=== PATIENT | female | born 1930 | race African-American/Black ===

== ENCOUNTER 2016-10-16 13:22 | Inpatient (IN) | payer OTHER ==
[~2016-10-16] VITALS: Ht 172.7 cm; Wt 56.7 kg
--- NOTE | ~2016-10-16 | EKG ---
[address] [place] [place] [address] ELECTROCARDIOGRAM REPORT Name: WINTERDINODARREN Room #: 436-P ADM IN M.R.#: [id number] Admission: 10/16/16 Attend Phys: Ralph Saul DO Discharge: Date of : 34 Report #: [id number] THIS REPORT FOR: //name// [facility] ED Test Date: 2016-10-16 Test Time: 13:33:59 Pat Name: EDU WINTER Department: Room: 436 Gender: F Casting Operator: LAWANDA : 1930 Requested By: Se Taylor Order Number: [id number] MD: Bryon Zayas Measurements Intervals Sterling Rate: 70 P: 22 MA: 163 QRS: 11 QRSD: 95 T: 94 QT: 435 QTc: 470 Interpretive Statements Sinus rhythm Atrial premature complexes Nonspecific ST segment abnormality No previous ECG available for comparison Electronically Signed On 10-18-2016 8:55:07 CDT by Bryon Zayas [email or web address] <ELECTRONICALLY SIGNED> By: Bryon Zayas MD, [facility] 10/18/16 0855 1333 1333 Bryon Zayas MD, FACC /EPI
--- NOTE | ~2016-10-16 | HC ---
[facility] [place] [address] CONSULTATION Name: EDU WINTER Room #: 436-P [facility] IN M.R.#: [id number] Admission: 10/16/16 Attend Phys: Ralph Saul DO Discharge: Date of : 34 Report #: [id number] THIS REPORT FOR: //name// CC: Alex Saul DATE OF ADMISSION: 10/16/2016. DATE OF CONSULTATION: 09/19/2016 REASON FOR CONSULTATION: Acute kidney injury. HISTORY OF PRESENT ILLNESS: This 85-year-old female has generally enjoyed good health except for hypertension. She has developed progressive dementia over the past several years and has lost a substantial amount of body weight. She lives with a daughter. On the day of admission, she suffered two episodes of loss of consciousness without observed seizure activity. She was brought to the Emergency Room and subsequently admitted for further evaluation and treatment. Creatinine was elevated to 1.6 on presentation and renal consultation was requested. The patient is unable to provide any meaningful history. A daughter is present and denies any knowledge of underlying chronic kidney disease, nephrolithiasis or urinary tract infection. PAST MEDICAL HISTORY: Is remarkable for hypertension and dementia as described. MEDICATIONS: On admission include Aricept 5 mg daily, amlodipine 10 mg daily, Namenda 10 mg b.i.d. PERSONAL AND SOCIAL HISTORY: The patient lives with a daughter. She is a reformed smoker having quit many years ago. She does not use alcohol or have any history of substance abuse. FAMILY HISTORY: Negative for renal disease. REVIEW OF SYSTEMS: Is not obtainable. PHYSICAL EXAMINATION: GENERAL: Reveals a well-developed female appearing her stated age, in no acute distress. VITAL SIGNS: Blood pressure 130/66, temperature 97.5, pulse 69, respirations 18. SKIN: Warm and dry. There is fair turgor noted. There is no clubbing, cyanosis, edema or adenopathy. There is evidence of significant body mass wastage with lax skin folds. There is no palpable adenopathy present. HEENT: The head is normocephalic and atraumatic. The sclerae are white. The pharynx is benign. NECK: Supple. [facility] [address] [place] [address] CONSULTATION Name: EDU WINTER Room #: 436-P ADM IN M.R.#: [id number] Admission: 10/16/16 Attend Phys: Ralph Saul DO Discharge: Date of : 34 Report #: [id number] LUNGS: Rehman reveal scattered expiratory wheezes without evidence of consolidation. CARDIAC: Reveals a regular rate and rhythm. ABDOMEN: Soft and nontender without palpable mass or organomegaly. Specifically, no bladder is palpable. NEUROLOGIC: Reveals the patient to be a poor historian and rather confused. She has no focal neurologic findings at this time. LABORATORY STUDIES: Available at the time of consultation include sodium 145, potassium 4.7, chloride 110, CO2 29, BUN 16, creatinine 1.5, glucose 80, white blood cell count 5200, hemoglobin 8.6, hematocrit 26.7, platelet count 108,000. Urinalysis revealed trace protein, trace blood, positive nitrates greater than 30 bacteria per high power field. ASSESSMENT AND PLAN: 1. Acute kidney injury in this patient with a history of hypertension, but no prior renal history. Her creatinine has fallen from 1.6-1.5 with modest hydration. I would continue her present IV fluids. We will obtain a straight cath urine specimen to evaluate for urinary tract infection as I believe her initial catch was contaminated. We will obtain a renal ultrasound as well as serologic studies to include JOE, ANCA and serum free light chains. I have discussed that conservative management is in order from my opinion with the patient's daughter who is in complete agreement. We will follow the patient with serial laboratory studies, I and O and daily weights. Please see orders. <ELECTRONICALLY SIGNED> By: Jak Duarte MD 10/18/16 0759 1117 1240 Jak Duarte MD /nt
--- NOTE | ~2016-10-16 | 2DMMODE ---
[facility] [place] [address] 2 D/M-MODE ECHOCARDIOGRAM Name: WINTEREDU Room #: 302-P ADM IN M.R.#: [id number] Admission: 10/16/16 Attend Phys: Ralph Saul, Discharge: Date of : 34 Date of Service: 10/17/16 1538 Report #: [id number] THIS REPORT FOR: //name// APPROVED REPORT EXAM: Comprehensive 2D, Doppler, and color-flow Echocardiogram Patient Location: Bedside/Room 302 Blood Pressure: 125/69 mmHg HR: 64 bpm Other Information Study Quality: Adequate Indications Syncope Hx: HTN, dementia 2D Dimensions RVDd: 38.37 mm LVEF(%): 60.25 (>50%) IVSd: 12.29 (7-11mm) LVOT Diam: 19.79 (18-24mm) LVDd: 43.30 mm PWd: 12.37 (7-11mm) Ascending Aorta: 30.57 mm LVDs: 29.49 (25-40mm) Aortic Root: 31.00 mm Angelo's LVEF: 60.25 % Volumes Left Atrial Volume (Systole) Single Plane 4CH: 63.06 mL Single Plane 2CH: 48.64 mL LA ESV Index: 41.00 mL/m2 Aortic Valve AoV Peak Barak.: 2.23 m/s AO Peak Gr.: 19.88 mmHg LV Max P.47 mmHg AO V2 VTI: 451.39 mm LV Max: 1.17 m/s Mitral Valve MV PHT: 70.35 ms MV E Max Barak.: 0.68 m/s E/A Ratio: 0.8 MV A Barak.: 0.90 m/s MV Decel. Time: 242.58 ms TDI [facility] [place] [address] [place] [address] 2 D/M-MODE ECHOCARDIOGRAM Name: DINO WINTERDARREN Room #: [address] [place] [address] IN .R.#: [id number] Admission: 10/16/16 Attend Phys: Ralph Saul, Discharge: Date of : 34 Date of Service: 10/17/16 1538 Report #: [id number] E/Lateral E': 12.00 E/Medial E': 12.00 Pulmonary Valve PV Peak Barak.: 0.84 m/s PV Peak Gr.: 2.80 mmHg Tricuspid Valve TR Peak Barak.: 3.34 m/s RAP Estimate: 5.00 mmHg TR Peak Gr.: 44.56 mmHg RVSP: 50.00 mmHg Left Ventricle The left ventricle is normal size. There is normal LV segmental wall motion. Mild concentric left ventricular hypertrophy. Left ventricular systolic function is normal. LVEF is 55-60%. Grade I - abnormal relaxation pattern. Right Ventricle The right ventricle is normal size. The right ventricular systolic function is normal. Atria Left atrium is moderately dilated. Right atrium is mildly dilated. Aortic Valve Aortic valve is modertely calcified. No aortic regurgitation is present. Mild aortic stenosis. Mitral Valve Moderate mitral annular calcification. Mild to moderate mitral regurgitation. Tricuspid Valve The tricuspid valve is normal in structure. There is moderate tricuspid regurgitation. The right atrial pressure is estimated at 5 mmHg. Right ventricular systolic pressure is estimated at 50 mmHg. There is moderate pulmonary hypertension. Pulmonic Valve Pulmonic valve is not well visualized. Great Vessels The aortic root is normal in size. IVC is normal in size and collapses >50% with inspiration. Pericardium There is no pericardial effusion. [facility] [address] [place] [address] 2 D/M-MODE ECHOCARDIOGRAM Name: EDU WINTER Room #: 302-P [facility] IN ..#: [id number] Admission: 10/16/16 Attend Phys: Ralph Saul, Discharge: Date of : 34 Date of Service: 10/17/16 1538 Report #: [id number] <Conclusion> Mild concentric left ventricular hypertrophy. Left ventricular systolic function is normal. LVEF 55-60%. There is normal LV segmental wall motion. Grade I diastolic dysfunction Left atrium is moderately dilated. Aortic valve is modertely calcified. No aortic regurgitation; mild aortic stenosis. Moderate mitral annular calcification. Mild-moderate insufficiency There is moderate tricuspid regurgitation. The right atrial pressure is estimated at 5 mmHg. Right ventricular systolic pressure is estimated at 50 mmHg. There is no pericardial effusion. <ELECTRONICALLY SIGNED> By: Bryon Zayas MD, FAC 10/17/16 1538 1538 1538 Bryon Zayas MD, FAC /INF
[2016-10-16] MEDS ORDERED: ARICEPT 5 MG TAB5 MG PO (13:48)
[2016-10-16] MEDS ORDERED: NAMENDA 10 MG T10 MG PO (13:48)
[2016-10-16] MEDS ORDERED: AMLODIPINE BESY10 MG PO (13:48)
[2016-10-16 14:07] LABS: URINE BILIRUBIN NEGATIVE (Negative); URINE BLOOD TRACE (Negative); URINE COLOR YELLOW; URINE GLUCOSE-RANDOM* NEGATIVE (Negative); URINE KETONES NEGATIVE (Negative); URINE LEUKOCYTES-REFLEX NEGATIVE (Negative); URINE PROTEIN (DIPSTICK) TRACE (Negative); URINE SPECIFIC GRAVITY 1.015 (1.003-1.035); URINE UROBILINOGEN 0.2 E.U./dl (0.2-1.0)
[2016-10-16 14:21] LABS: SQUAMOUS >10 Many /LPF (0-3)
[2016-10-16 14:22] LABS: CASTS None Seen /LPF (None Seen)
[2016-10-16 14:23] LABS: CRYSTALS None Seen /LPF (None Seen); URINE RBC 0-2 Rare /HPF (0-2); URINE WBC-REFLEX 6-15 Few /HPF (0-5)
[2016-10-16 14:52] LABS: HEMATOCRIT 33.8 % (37.0-47.0); HEMOGLOBIN 10.8 gm/dL (12.0-15.0); MCH 25.9 pg (26.0-34.0); MCV 80.9 fL (80.0-100.0); RBC 4.17 mil/uL (4.20-5.00); RDW 14.5 % (10.5-14.5); WBC 5.6 thou/uL (4.0-11.0)
[2016-10-16 15:07] LABS: ANION GAP 7 mmol/L (7-16); BUN 18 mg/dL (7-18); CALCIUM 9.4 mg/dL (8.5-10.1); CHLORIDE 111 mmol/L (98-107); CO2 30 mmol/L (21-32); CREATININE 1.6 mg/dL (0.6-1.3); GLUCOSE 98 mg/dL (70-99); POTASSIUM 4.2 mmol/L (3.5-5.1); SODIUM 148 mmol/L (136-145)
[2016-10-16 15:16] LABS: TROPONIN-I < 0.04 ng/mL (<0.04-0.07)
[2016-10-16] MEDS ORDERED: LUMIGAN2.5 M1 OP (20:17)
[2016-10-16] MEDS ORDERED: SIMBRINZA 1%-0.28 ML OP (20:18)
[2016-10-17 05:34] LABS: ABSOLUTE NEUTROPHILS 2.4 thou/uL (1.4-8.2); BASOPHILS 0.9 % (0.0-2.0); EOSINOPHILS 1.1 % (0.0-3.0); HEMATOCRIT 26.7 % (37.0-47.0); MCH 25.9 pg (26.0-34.0); MONOCYTES 6.5 % (1.0-8.0); PLATELET COUNT 108 thou/uL (150-400); POLYS 45.5 % (36.0-66.0); RDW 14.6 % (10.5-14.5); WBC 5.2 thou/uL (4.0-11.0)
[2016-10-17 05:38] LABS: HEMOGLOBIN 8.6 gm/dL (12.0-15.0)
[2016-10-17 05:39] LABS: MANUAL DIFF NO
[2016-10-17 06:07] LABS: CALCIUM 8.9 mg/dL (8.5-10.1); CREATININE 1.5 mg/dL (0.6-1.3); POTASSIUM 4.7 mmol/L (3.5-5.1)
[2016-10-17 12:07] LABS: ABSOLUTE NEUTROPHILS 1.8 thou/uL (1.4-8.2); BASOPHILS 0.8 % (0.0-2.0); EOSINOPHILS 1.5 % (0.0-3.0); HEMATOCRIT 26.9 % (37.0-47.0); HEMOGLOBIN 8.8 gm/dL (12.0-15.0); LYMPHOCYTES 53.1 % (24.0-44.0); MCH 26.2 pg (26.0-34.0); MCHC 32.6 g/dL (28.0-37.0); MCV 80.3 fL (80.0-100.0); MONOCYTES 7.4 % (1.0-8.0); PLATELET COUNT 132 thou/uL (150-400); POLYS 37.2 % (36.0-66.0); RBC 3.35 mil/uL (4.20-5.00); RDW 14.4 % (10.5-14.5)
[2016-10-17 12:09] LABS: MANUAL DIFF NO
[2016-10-17 12:45] LABS: ALKALINE PHOSPHATASE 66 U/L (46-116); DIRECT BILIRUBIN < 0.1 mg/dL (<0.1-0.3); SGOT 17 U/L (15-37); SGPT 11 U/L (30-65); TOTAL BILIRUBIN 0.2 mg/dL (<0.1-1.0); TOTAL PROTEIN 6.1 g/dL (6.4-8.2)
[2016-10-17 23:41] LABS: URINE BILIRUBIN NEGATIVE (Negative); URINE BLOOD TRACE (Negative); URINE COLOR YELLOW; URINE GLUCOSE-RANDOM* NEGATIVE (Negative); URINE KETONES NEGATIVE (Negative); URINE NITRITE NEGATIVE (Negative); URINE PROTEIN (DIPSTICK) NEGATIVE (Negative); URINE UROBILINOGEN 0.2 E.U./dl (0.2-1.0)
[2016-10-18 05:13] LABS: ABSOLUTE NEUTROPHILS 2.2 thou/uL (1.4-8.2); EOSINOPHILS 1.8 % (0.0-3.0); HEMATOCRIT 25.3 % (37.0-47.0); HEMOGLOBIN 8.2 gm/dL (12.0-15.0); LYMPHOCYTES 43.7 % (24.0-44.0); MCH 25.8 pg (26.0-34.0); MCHC 32.5 g/dL (28.0-37.0); MCV 79.4 fL (80.0-100.0); MONOCYTES 5.8 % (1.0-8.0); PLATELET COUNT 115 thou/uL (150-400); POLYS 47.7 % (36.0-66.0); RBC 3.18 mil/uL (4.20-5.00); RDW 14.1 % (10.5-14.5); WBC 4.6 thou/uL (4.0-11.0)
[2016-10-18 05:23] LABS: MANUAL DIFF NO
[2016-10-18 05:26] LABS: ALBUMIN 2.7 g/dL (3.4-5.0); CALCIUM 8.5 mg/dL (8.5-10.1); CREATININE 1.4 mg/dL (0.6-1.3); MAGNESIUM 1.7 mg/dL (1.8-2.4); PHOSPHORUS 4.2 mg/dL (2.5-4.9); POTASSIUM 4.3 mmol/L (3.5-5.1)
[2016-10-18 13:13] LABS: URINE CREATININE-RANDOM* 19.3 mg/dL (Not Estab.)
[2016-10-18 16:08] LABS: URINE PROTEIN-RANDOM* 8.5 mg/dL (Not Estab.)
[2016-10-19 06:00] LABS: ABSOLUTE NEUTROPHILS 1.5 thou/uL (1.4-8.2); BASOPHILS 0.8 % (0.0-2.0); EOSINOPHILS 2.9 % (0.0-3.0); HEMATOCRIT 25.4 % (37.0-47.0); HEMOGLOBIN 8.2 gm/dL (12.0-15.0); LYMPHOCYTES 54.4 % (24.0-44.0); MCH 25.9 pg (26.0-34.0); MCHC 32.4 g/dL (28.0-37.0); MONOCYTES 6.3 % (1.0-8.0); PLATELET COUNT 123 thou/uL (150-400); POLYS 35.6 % (36.0-66.0); RBC 3.18 mil/uL (4.20-5.00); WBC 4.1 thou/uL (4.0-11.0)
[2016-10-19 06:16] LABS: CALCIUM 8.6 mg/dL (8.5-10.1); CREATININE 1.3 mg/dL (0.6-1.3); POTASSIUM 4.2 mmol/L (3.5-5.1)
[2016-10-19 06:17] LABS: MANUAL DIFF NO
[2016-10-19 06:26] LABS: % SATURATION 26 % (20-39); IRON 46 ug/dL (50-170); TIBC 179 ug/dL (250-450); UIBC 133 ug/dL
[2016-10-19] MEDS ORDERED: KEFLEX250 MG PO (12:32)
[2016-10-19] MEDS ORDERED: MAGOX 400400 MG PO (12:32)
[2016-10-19] MEDS ORDERED: NORVASC5 MG PO (12:34)
[2016-10-19 17:59] LABS: KAPPA FREE LIGHT CHAINS 48.23 mg/L (3.30-19.40); KAPPA/LAMBDA RATIO 2.74 (0.26-1.65); LAMBDA FREE LIGHT CHAINS 17.61 mg/L (5.71-26.30)
[2016-10-23 17:10] LABS: c-ANCA <1:20 titer (Neg:<1:20); p-ANCA <1:20 titer (Neg:<1:20)
== END 2016-10-19 17:00 | DRG 682 ==
LOC: ER 13:22 → EROBS 17:04 → 3N 17:04 → 4S 10-17 17:28
PROVIDERS: Emergency Medicine; Internal Medicine; Internal Medicine Gastroenterology; Internal Medicine Geriatric Medicine; Internal Medicine Nephrology
DX: N17.9 Acute kidney failure, unspecified (principal); E43 Unspecified severe protein-calorie malnutrition; N39.0 Urinary tract infection, site not specified; Z68.1 Body mass index [BMI] 19.9 or less, adult; G30.9 Alzheimer's disease, unspecified; F02.80 Dementia in other diseases classified elsewhere, unspecified severity, without behavioral disturbance, psychotic disturbance, mood disturbance, and anxiety; I10 Essential (primary) hypertension; E83.42 Hypomagnesemia; D63.8 Anemia in other chronic diseases classified elsewhere; Z23 Encounter for immunization; Z87.891 Personal history of nicotine dependence
CPT/HCPCS: 10096; 10100

== ENCOUNTER 2016-11-13 12:33 | Emergency (ER) | payer OTHER ==
[~2016-11-13] VITALS: Ht 172.7 cm; Wt 56.7 kg
[~2016-11-13 12:33] MED LIST: AMLODIPINE BESY10 MG PO; ARICEPT 5 MG TAB5 MG PO; KEFLEX250 MG PO; LUMIGAN2.5 M1 OP; MAGOX 400400 MG PO; NAMENDA 10 MG T10 MG PO; NORVASC5 MG PO; SIMBRINZA 1%-0.28 ML OP
[2016-11-13] MEDS ORDERED: VITAMIN B122500 MCG PO (15:33)
== END 2016-11-13 15:39 | disposition home or self-care (01) ==
LOC: ER 12:33
DX: S90.821A Blister (nonthermal), right foot, initial encounter (principal); I10 Essential (primary) hypertension; G30.9 Alzheimer's disease, unspecified; F02.80 Dementia in other diseases classified elsewhere, unspecified severity, without behavioral disturbance, psychotic disturbance, mood disturbance, and anxiety; X58.XXXA Exposure to other specified factors, initial encounter; Y93.89 Activity, other specified; Y92.89 Other specified places as the place of occurrence of the external cause; Y99.8 Other external cause status

== ENCOUNTER 2016-11-22 09:54 | Inpatient (IN) | payer OTHER ==
[~2016-11-22] VITALS: Ht 172.7 cm; Wt 63.5 kg
--- NOTE | ~2016-11-22 | H ---
[facility] [place] [address] HISTORY AND PHYSICAL Name: EDU WINTER Room #: 444-P ADM IN M.R.#: [id number] Admission: 11/22/16 Attend Phys: Alex Ricardo MD Discharge: Date of : 32 Report #: [id number] THIS REPORT FOR: //name// CC: Alex Ricardo DATE OF SERVICE: 11/22/2016 CHIEF COMPLAINT: Weakness. HISTORY OF PRESENT ILLNESS: The patient is an 86-year-old female who was admitted from home with weakness of a few days' onset, but abnormal lab work. She was hospitalized about 6 weeks ago with syncopal episode, urinary tract infection and mild renal insufficiency. It appears creatinine bumped up maybe to 1.8-2, but seemed to stabilize and improve with IV fluids down to about 1.5-1.6. She then transferred to [facility] [place] [facility] for rehabilitation efforts where she stayed about 4-5 weeks according to her daughter. She reports that at the facility, she was able to walk and had a fairly good appetite. She just went home about 5 or 7 days ago and daughter reports that she has been eating and drinking less, spending more time sleeping and is very weak and unable to stand. I assessed her in the office yesterday and lab work was obtained this morning. It revealed a creatinine of 4.4 with a BUN of 77 and a sodium of 153. PAST MEDICAL HISTORY: Hypertension, Alzheimer disease. PAST SURGICAL HISTORY: Noncontributory. FAMILY HISTORY: Unknown. SOCIAL HISTORY: She lives with her daughter and is cared at home. No chronic alcohol or tobacco use. ALLERGIES: None. MEDICATIONS: Aricept 5 mg, Norvasc 5 mg, Namenda 10 mg twice a day. REVIEW OF SYSTEMS: She is unable to give review. PHYSICAL EXAMINATION: VITAL SIGNS: Temperature 36.7, pulse , respirations 16, blood pressure 111/86, O2 sat 97% on room air. GENERAL: She is an elderly lady who looks cachectic, is awake but nonverbal. HEAD AND NECK: Unremarkable. LUNGS: Clear. HEART: Regular. ABDOMEN: Soft, normoactive bowel sounds. Nontender. EXTREMITIES: No edema. [facility] [address] [place] [address] HISTORY AND PHYSICAL Name: EDU WINTER Room #: 444-P [facility] IN .R.#: [id number] Admission: 11/22/16 Attend Phys: Alex Ricardo MD Discharge: Date of : 32 Report #: [id number] NEUROLOGIC: Motor strength 3/5 throughout. ASSESSMENT: 1. Acute renal failure. 2. Hypertension. 3. Alzheimer disease. PLAN: A lab work will be obtained along with renal ultrasound, Diez catheter, IV fluids. I will ask the renal service to assess her. I talked to both daughters at the bedside. If this is representing renal failure dialysis candidate due to her advanced dementia and immobility. I also advised him that this may be the signs of her end-stages of her dementia with loss of intake and loss of walking and talking. We discussed code status and they have requested full code at this time. We discussed even a PEG tube possibility in the future and they were to take that under consideration. We will treat her conservatively medically at this point and see how things come out in the day or 2 going forward. <ELECTRONICALLY SIGNED> By: Alex Ricardo MD 11/23/16 0952 1303 1343 Alex Ricardo MD /nt
--- NOTE | ~2016-11-22 | HC ---
[facility] [address] [place] [address] CONSULTATION Name: EDU WINTER Room #: 444-P ADM IN M.R.#: [id number] Admission: 11/22/16 Attend Phys: Alex Ricardo MD Discharge: Date of : 34 Report #: [id number] THIS REPORT FOR: //name// CC: Alex Ricardo NEPHROLOGY CONSULTATION ATTENDING PHYSICIAN: Alex Ricardo M.D. REASON FOR CONSULTATION: Elevated creatinine and BUN. HISTORY OF PRESENT ILLNESS: This is a patient with a long-standing rather severe dementia, who was admitted to this hospital last month with an elevated creatinine, thought to have volume depletion and change in mental status, without particularly revealing findings, except for that of an E. coli urinary tract infection, which was treated. She was then discharged to [facility] and eventually went home. Has been home for a couple of weeks and has had gradual deterioration with weakness, difficulty with ambulation, ongoing poor mental status and decreased food and fluid intake. She was seen in the office and found to have a creatinine of 4.5 and 4.5 today now; elevated BUN of 77 yesterday, 90 today and sodium of 153. PAST MEDICAL HISTORY: She has had long-standing hypertension, likely some underlying CKD and Alzheimer's type dementia. PAST SURGICAL HISTORY: Unknown surgeries. REVIEW OF SYSTEMS: Can really not be taken. I did talk to her daughter at length. GENERAL: She has been feeling poorly. EYES: Her vision is okay. ENT: Has not been swallowing much, but not complaining of anything. Not complaining of mouth sores or ulcers. ENDOCRINE: No history of diabetes or thyroid disease. RESPIRATORY: There has been no obvious shortness of breath, pleuritic pain or hemoptysis. No cough. CARDIAC: She has not had any cardiac history either. She had an echo last admission that showed a pretty good ejection fraction. GASTROINTESTINAL: Again, the poor intake, but no nausea, vomiting or diarrhea. No bloody stools. GENITOURINARY: Has not noticed much in the way of urinary problems. No dysuria has been complained of and no hematuria noticed. NEUROLOGIC: Very dense and severe dementia, with lately inability to even walk or get up at all and completely uncooperative. SOCIAL HISTORY: Former smoker. No alcohol. [facility] [address] [place] [address] CONSULTATION Name: EDU WINTER Room #: 444-P [facility] IN M.R.#: [id number] Admission: 11/22/16 Attend Phys: Alex Ricardo MD Discharge: Date of : 32 Report #: [id number] FAMILY HISTORY: Noncontributory. PHYSICAL EXAMINATION: GENERAL: This is a very ill, quite cachectic elderly patient, in not in any acute distress, extremely confused. No idea of orientation whatsoever. SKIN: Shows somewhat poor turgor. SKELETAL: Shows cachexia. HEENT: Extraocular movements are full. No scleral icterus. Hearing and vision appear to be intact. Mucous membranes are quite dry. NECK: The neck veins are flat. CHEST: Shows diminished breath sounds. HEART: Distant, but regular. ABDOMEN: Scaphoid and nontender. No organomegaly. EXTREMITIES: Show no edema. There apparently there few stage-2 ulcers in the sacral area and she has got a blister on the inner right heel. LABORATORY DATA: Hemoglobin is 10.2 and that is up from 8.2 several weeks ago at discharge, white count is 13.6 and platelets are only 85,000. The differential has been ordered. urine studies available. Sodium 153, potassium 5.8, chloride 119, bicarbonate 23, creatinine 4.5 and BUN 91. ASSESSMENT AND PLAN: 1. Hpcjn-sd-mvecyno kidney disease. This elderly patient appears to be volume depleted. IV fluids are ordered. She is a bit hyperkalemic. Intake has probably been poor. As far as I can tell, she has not been on any diuretics. She has not had nausea, vomiting or diarrhea. Hopefully, at least her renal function will respond. We will try to get a urinalysis for completeness and also get a renal sonogram and urine sodium and creatinine studies for further evaluation and treatment. We will order some paraprotein studies as well, as they may be relevant here. 2. Advanced dementia, certainly not a candidate for any real aggressive treatment at this time. 3. History of urinary tract infection. We will try to recheck for that. By: 1627 0011 Loyd Ma MD /nt
[~2016-11-22 09:54] MED LIST changes: +VITAMIN B122500 MCG PO
[2016-11-22 11:10] VITALS: BP 111/86
[2016-11-22 14:29] LABS: HEMATOCRIT 32.7 % (37.0-47.0); HEMOGLOBIN 10.2 gm/dL (12.0-15.0); MCH 25.2 pg (26.0-34.0); MCHC 31.3 g/dL (28.0-37.0); MCV 80.6 fL (80.0-100.0); RBC 4.06 mil/uL (4.20-5.00); RDW 14.8 % (10.5-14.5); WBC 13.6 thou/uL (4.0-11.0)
[2016-11-22 14:43] LABS: CALCIUM 8.8 mg/dL (8.5-10.1); CREATININE 4.5 mg/dL (0.6-1.0)
[2016-11-22 14:45] LABS: POTASSIUM 5.8 mmol/L (3.5-5.1)
[2016-11-22 14:48] LABS: ALBUMIN 2.6 g/dL (3.4-5.0); TOTAL BILIRUBIN 0.4 mg/dL (<0.1-1.0); TOTAL PROTEIN 7.7 g/dL (6.4-8.2)
[2016-11-22 16:44] VITALS: BP 122/67
[2016-11-22 19:36] VITALS: BP 114/97
[2016-11-22 23:17] LABS: URINE BILIRUBIN NEGATIVE (Negative); URINE BLOOD 2+ (Negative); URINE COLOR YELLOW; URINE GLUCOSE-RANDOM* NEGATIVE (Negative); URINE KETONES NEGATIVE (Negative); URINE NITRITE NEGATIVE (Negative); URINE PROTEIN (DIPSTICK) 1+ (Negative); URINE SPECIFIC GRAVITY >= 1.030 (1.003-1.035); URINE UROBILINOGEN 0.2 E.U./dl (0.2-1.0)
[2016-11-22 23:26] LABS: BACTERIA >30 Many /HPF (None Seen); CASTS None Seen /LPF (None Seen); FINE GRANULAR CASTS 0-3 Few /LPF (None Seen); HYALINE CASTS 0-3 Few /LPF (None Seen); SQUAMOUS 4-10 Moderate /LPF (0-3); URINE RBC 0-2 Rare /HPF (0-2); URINE WBC 6-15 Few /HPF (0-5)
[2016-11-22 23:27] LABS: AMORPHOUS URATES Moderate /LPF (None Seen)
[2016-11-22 23:47] LABS: CRYSTALS None Seen /LPF (None Seen)
[2016-11-23 04:08] VITALS: BP 117/55
[2016-11-23 05:47] LABS: HEMATOCRIT 27.2 % (37.0-47.0); HEMOGLOBIN 8.7 gm/dL (12.0-15.0); MCH 25.3 pg (26.0-34.0); MCHC 32.2 g/dL (28.0-37.0); MCV 78.8 fL (80.0-100.0); RBC 3.45 mil/uL (4.20-5.00); RDW 14.5 % (10.5-14.5); WBC 11.4 thou/uL (4.0-11.0)
[2016-11-23 06:07] LABS: ALBUMIN 2.3 g/dL (3.4-5.0); CALCIUM 8.1 mg/dL (8.5-10.1); CREATININE 4.1 mg/dL (0.6-1.0); PHOSPHORUS 4.2 mg/dL (2.5-4.9)
[2016-11-23 06:08] LABS: POTASSIUM 4.7 mmol/L (3.5-5.1)
[2016-11-23 07:33] VITALS: BP 122/70
[2016-11-23 16:39] VITALS: BP 130/82
[2016-11-23 19:46] VITALS: BP 103/46
[2016-11-24 04:17] VITALS: BP 129/84
[2016-11-24 06:10] LABS: ALBUMIN 2.3 g/dL (3.4-5.0); CALCIUM 8.3 mg/dL (8.5-10.1); CREATININE 3.2 mg/dL (0.6-1.0); PHOSPHORUS 3.6 mg/dL (2.5-4.9)
[2016-11-24 08:20] VITALS: BP 143/72
[2016-11-24 12:00] VITALS: BP 146/74
[2016-11-24 15:28] VITALS: BP 134/85
[2016-11-24 16:07] LABS: KAPPA FREE LIGHT CHAINS 198.2 mg/L (3.30-19.40); KAPPA/LAMBDA RATIO 2.32 (0.26-1.65); LAMBDA FREE LIGHT CHAINS 85.3 mg/L (5.71-26.30)
[2016-11-24 19:53] VITALS: BP 144/80
[2016-11-24 20:07] LABS: A/G RATIO 0.6 (0.7-1.7); ALBUMIN 2.3 g/dL (2.9-4.4); ALPHA 1 0.5 g/dL (0.0-0.4); GAMMA 1.2 g/dL (0.4-1.8); M-SPIKE Not Observed g/dL (Not Observed)
[2016-11-25 04:03] VITALS: BP 126/78
[2016-11-25 05:32] LABS: ALBUMIN 2.3 g/dL (3.4-5.0); CREATININE 2.6 mg/dL (0.6-1.0); PHOSPHORUS 3.5 mg/dL (2.5-4.9); POTASSIUM 4.1 mmol/L (3.5-5.1)
[2016-11-25 07:27] VITALS: BP 116/75
[2016-11-25 11:18] VITALS: BP 128/73
[2016-11-25 15:57] VITALS: BP 142/88
[2016-11-25 20:37] VITALS: BP 140/94
[2016-11-26 05:00] VITALS: BP 155/89
[2016-11-26 06:00] LABS: CALCIUM 7.9 mg/dL (8.5-10.1); CREATININE 2.2 mg/dL (0.6-1.0); POTASSIUM 4.1 mmol/L (3.5-5.1)
[2016-11-26 07:16] VITALS: BP 138/74
[2016-11-26 10:04] LABS: HEMATOCRIT 24.8 % (37.0-47.0); HEMOGLOBIN 8.2 gm/dL (12.0-15.0); MCH 25.9 pg (26.0-34.0); MCV 78.3 fL (80.0-100.0); RBC 3.17 mil/uL (4.20-5.00); RDW 14.4 % (10.5-14.5); WBC 9.3 thou/uL (4.0-11.0)
[2016-11-26 16:07] VITALS: BP 120/60
[2016-11-26 20:20] VITALS: BP 137/68
[2016-11-27 04:28] VITALS: BP 124/76
[2016-11-27 06:14] LABS: HEMATOCRIT 24.3 % (37.0-47.0); HEMOGLOBIN 8.2 gm/dL (12.0-15.0); MCH 26.2 pg (26.0-34.0); MCHC 33.6 g/dL (28.0-37.0); RBC 3.11 mil/uL (4.20-5.00); RDW 14.4 % (10.5-14.5); WBC 9.4 thou/uL (4.0-11.0)
[2016-11-27 06:38] LABS: CALCIUM 7.3 mg/dL (8.5-10.1); CREATININE 2.2 mg/dL (0.6-1.0); PHOSPHORUS 3.7 mg/dL (2.5-4.9); POTASSIUM 4.5 mmol/L (3.5-5.1)
[2016-11-27 08:00] VITALS: BP 113/72
[2016-11-27 08:07] VITALS: BP 113/72
[2016-11-27 16:00] VITALS: BP 143/58
[2016-11-27 20:00] VITALS: BP 119/64
[2016-11-28 05:00] VITALS: BP 114/60
[2016-11-28 06:26] LABS: CALCIUM 7.3 mg/dL (8.5-10.1); CREATININE 2.1 mg/dL (0.6-1.0); PHOSPHORUS 3.7 mg/dL (2.5-4.9); POTASSIUM 4.6 mmol/L (3.5-5.1)
[2016-11-28 08:00] VITALS: BP 119/74
[2016-11-28] MEDS ORDERED: ACETAMINOPHEN325 M1 PO (09:48)
[2016-11-28] MEDS ORDERED: SSD CREAM 1% 5050 GM TOP ×2 (09:48→13:48)
[2016-11-28] MEDS ORDERED: CEFTIN 250250 MG/52 PO ×3 (09:49→13:48)
[2016-11-28 14:33] VITALS: BP 119/74
== END 2016-11-28 19:01 | disposition short-term general hospital (02) | DRG 682 ==
LOC: 4S 09:54
PROVIDERS: Hospitalist; Internal Medicine Geriatric Medicine; Internal Medicine Nephrology
PROC: B548ZZA Ultrasonography of Superior Vena Cava, Guidance (ICD-10-PCS; principal; 2016-11-27)
PROC: 02HV33Z Insertion of Infusion Device into Superior Vena Cava, Percutaneous Approach (ICD-10-PCS; principal; 2016-11-27)
DX: N17.9 Acute kidney failure, unspecified (principal); E43 Unspecified severe protein-calorie malnutrition; E87.0 Hyperosmolality and hypernatremia; N39.0 Urinary tract infection, site not specified; G30.9 Alzheimer's disease, unspecified; I12.9 Hypertensive chronic kidney disease with stage 1 through stage 4 chronic kidney disease, or unspecified chronic kidney disease; N18.4 Chronic kidney disease, stage 4 (severe); F02.80 Dementia in other diseases classified elsewhere, unspecified severity, without behavioral disturbance, psychotic disturbance, mood disturbance, and anxiety; E86.0 Dehydration; L89.152 Pressure ulcer of sacral region, stage 2; L89.610 Pressure ulcer of right heel, unstageable; S90.821A Blister (nonthermal), right foot, initial encounter; Z79.899 Other long term (current) drug therapy; Z68.21 Body mass index [BMI] 21.0-21.9, adult
CPT/HCPCS: 10100; 27001